=== PATIENT | male | born 1960 | race Caucasian/White ===

== ENCOUNTER → 2021-07-16 | Outpatient (CLI) | payer OTHER | LOC: EXRD 10:43 | DX: M16.11 Unilateral primary osteoarthritis, right hip (principal) | CPT/HCPCS: 73522 ==

== ENCOUNTER 2022-03-09 18:00 | Observation (INO) | payer OTHER ==
[~2022-03-09] VITALS: Ht 167.6 cm; Wt 103.4 kg
[2022-03-09 19:06] LABS: BUN/CREATININE RATIO 17 (0-10)
[2022-03-09 19:20] LABS: HEMOGLOBIN 15.2 gm/dl (14.0-17.5); RED BLOOD COUNT 4.73 M/UL (4.20-5.50)
--- NOTE | 2022-03-10 00:14 | NUR ---
PT DOESNT HAVE HOME MEDICATION BOTTLES WITH HIM. [facility] REC WILL BE COMPLETED BY PHARMACY IN THE AM. WILL CONTINUE TO MONITOR.
[2022-03-10] MEDS ORDERED: ASPIRIN EC81 MG PO (15:36)
[2022-03-10] MEDS ORDERED: ATORVASTATIN CA20 MG PO (15:36)
[2022-03-10] MEDS ORDERED: GLUCOPHAGE 500500 MG PO (15:47)
[2022-03-10] MEDS ORDERED: GLIPIZIDE ER10 MG PO (15:48)
== END 2022-03-10 16:54 | disposition home or self-care (01) ==
LOC: ER1 18:00 → CDU 20:50 → M/S 20:50 → CDU 20:50 → M/S 23:04
PROVIDERS: Family Medicine; ADMIT Internal Medicine
DX: G45.9 Transient cerebral ischemic attack, unspecified (principal); Z20.822 Contact with and (suspected) exposure to COVID-19; I11.0 Hypertensive heart disease with heart failure; I50.9 Heart failure, unspecified; I65.22 Occlusion and stenosis of left carotid artery; E11.65 Type 2 diabetes mellitus with hyperglycemia; E78.5 Hyperlipidemia, unspecified; F17.210 Nicotine dependence, cigarettes, uncomplicated
CPT/HCPCS: ECHO; 0240U; 36415; 70450; 70551; 71045; 80053; 80061; 80307; 81001; 82550; 82553; 82962; 83605; 84439; 84443; 84484; 85025; 85610; 93005; 93306; 93880; 99285; G0378; G0480

== ENCOUNTER → 2022-06-23 | Outpatient (CLI) | payer OTHER ==
[~2022-06-23] MED LIST: ASPIRIN EC81 MG PO; ATORVASTATIN CA20 MG PO; GLIPIZIDE ER10 MG PO; GLUCOPHAGE 500500 MG PO
== END ==
LOC: RAD 10:35
DX: M54.50 Low back pain, unspecified (principal); G89.29 Other chronic pain; M47.816 Spondylosis without myelopathy or radiculopathy, lumbar region
CPT/HCPCS: 72100